=== PATIENT | female | born 2000 | race Two or more races ===

== ENCOUNTER 2024-10-27 20:44 | Emergency (ER) | payer MEDICAID, SELFPAY ==
[2024-10-27 20:45] VITALS: BMI 23.9
[2024-10-27 20:57] VITALS: BP 121/86; PULSE 90; RESP 20; TEMP 36.7; O2SAT 99
--- NOTE | 2024-10-27 21:00 | XR_ITS ---
Examination: Abdomen sonogram, Limited Date and time of exam: October 27, 2024 2102 hours INDICATIONS: Onset epigastric pain today Technique: Real-time rich scale transabdominal sonographic images of the upper abdomen obtained. Findings: Normal gallbladder. Normal common bile duct 0.2 cm Pancreatic head 1.9 cm Liver 16.8 cm no liver lesions Normal hepatopedal portal venous flow Patent IVC IMPRESSION: Normal gallbladder Mild hepatomegaly
--- NOTE | 2024-10-27 21:00 | PD.EDABDPN ---
ED Abdominal Pain RME/HPI General Chief Complaint: Abdominal Pain Stated complaint: ABD PAIN RADIATING TO BACK AFTER EATING Time seen by provider: 10/27/24 20:50 Arrival date/time: 10/27/24 20:44 RME / HPI RME / HPI narrative: 24-year-old female patient with no past medical history, came in for evaluation regarding epigastric pain. Everything started few minutes prior to ER visit as sudden onset of epigastric pain after eating pizza and corn dog. Pain is described as sharp pain radiating to the back. Associated with vomiting. Denies any fever denies any other complaints no medication was taken prior to arrival. Related Data Allergies Allergy/AdvReac Type Severity Reaction Status Date / Time No Known Allergies Allergy Verified 10/27/24 20:45 Review of Systems Review of Systems Narrative Review of Systems: Review of system reviewed and within normal limits except mentioned in HPI ED Exam Narrative Physical exam: VITAL SIGNS: Reviewed. GENERAL APPEARANCE: Alert and interactive, follows commands, no acute distress, HEAD AND FACE: Non-traumatic. ENT: PERRL, pink conjunctivitis, eyelid no trauma, Mucous membrane moist. NECK: Supple, nontender, no nuchal rigidity. CHEST: No tenderness, no crepitus, no paradoxical movement, no retractions. LUNGS: Clear, well ventilated, symmetric, no rales, no wheezing, no ronchi, no stridor, good breath sounds bilaterally. HEART: Regular rate, regular rhythm, no murmur, no gallops. ABDOMEN: Soft, positive bowel sounds, nondistended, no guarding, epigastric tenderness, no rebound, no masses, RECTAL: Deferred. GENITAL: Deferred. NEUROLOGICAL: Gross motor function intact sensory function intact, Appropriate for age. MUSCULOSKELETAL: low back nontender, full range of motion. EXTREMITIES: Nontender, full range of motion. SKIN: Color pink, dry, no rash, no lacerations, no abrasions, no contusions. LYMPHATICS: Deferred. Course Quality Measures none Orders Category Date Time Status US gall bladder Stat Exams 10/27/24 21:00 Completed CBC Stat Lab 10/27/24 21:40 Completed Comprehensive Metabolic Panel Stat Lab 10/27/24 21:40 Completed HCG Qualitative,Urine Stat Lab 10/27/24 21:28 Completed Lipase Stat Lab 10/27/24 21:40 Completed Prothrombin Time with INR Stat Lab 10/27/24 21:40 Completed UA, C/S IF [Urinalysis, C/S if Indicated] Stat Lab 10/27/24 21:28 Completed Ketorolac Inj [Toradol Inj] Med 10/27/24 20:59 Discontinued 30 mg IM X1 ONE Ondansetron Odt [Zofran Odt] Med 10/27/24 20:59 Discontinued 4 mg PO X1 ONE Vital Signs Vital signs: Vital Signs Temperature 98.0 F 10/27/24 20:57 Pulse Rate 90 10/27/24 20:57 Respiratory Rate 20 10/27/24 20:57 Blood Pressure 121/86 H 10/27/24 20:57 Pulse Oximetry (%) 99 10/27/24 20:57 Oxygen Delivery Method Room Air 10/27/24 20:57 Abdominal Pain [facility] Narrative [facility] Narrative:: 24-year-old female patient with no past medical history, came in for evaluation regarding epigastric pain. Everything started few minutes prior to ER visit as sudden onset of epigastric pain after eating pizza and corn dog. Pain is described as sharp pain radiating to the back. Associated with vomiting. Denies any fever denies any other complaints no medication was taken prior to arrival. Patient's workup today all came back unremarkable lipase is normal, ultrasound of gallbladder also came back unremarkable. Prior to discharge patient epigastric pain is completely gone. Patient data External records reviewed:: None Clinical information provided by:: patient Social determinants that could affect healthcare access:: none Patient has the following chronic illnesses:: None How is presenting disease/condition affected by chronic disease/condition?: no chronic disease Evaluation data The following diagnostics were reviewed and interpreted by me:: lab results and radiology exam(s) Lab and/or radiology exams considered but not ordered:: None Interpretation Summary: See results MDM Medications / Prescriptions Medications or Prescriptions considered but not ordered:: None Medication administrations:: Medication Administration History Discontinued Medications Ketorolac Tromethamine (Ketorolac Inj 60 Mg/2 Ml Vial) 30 mg IM X1 ONE Stop: 10/27/24 21:00 Last Admin: 10/27/24 21:32 Dose: 30 mg Documented By: EF Ondansetron HCl (Ondansetron Odt 4 Mg Tabrap) 4 mg PO X1 ONE; Protocol Stop: 10/27/24 21:00 Last Admin: 10/27/24 21:32 Dose: 4 mg Documented By: EF Toradol IM and Zofran Consultations Consultation(s) initiated? (list below): No Diagnosis Differential diagnosis abdominal pain: abdominal pain, gastroenteritis and pancreatitis Most likely diagnosis given after review of the tests above:: With worsening, epigastric pain, Admission Indicated Admission indicated?: not indicated Admission Request Was there a request for admission?: No Admission Attestation Admission request attestation: Stable Disposition Plan Disposition Plan: Discharge Discharge Attestation Discharge Attestation: The patient was given an opportunity to ask questions and understood the discharge instructions. Discharge instructions specifically effects, indications for sooner follow up or return to the emergency department, and the expected course of current diagnosis. Patient condition: Stable Discharge Plan Plan Patient Disposition: HOME (Self Care) Discharge Disposition comment: Stable Problem List Clinical Impression: Acute epigastric pain, Food poisoning Patient/Caregiver Discharge Instructions Discharge Activity: activity as tolerated Education Materials: ED Food Poison Or Gastroenteritis Additional Instructions: Thank you for the opportunity for serving you today. You are stable for discharged . You are advised to: Follow-up with your PCP in 1 to 2 days Return to ED for worsening of symptoms Increase oral fluids Print Language: Citizen Of [place] Stand Alone Forms: Sadia Award Info., Patient Portal Info Letter PA/LAUREN Supervising Physician JARON/LAUREN Supervising Physician: MD Almita
[2024-10-27] MEDS: KETOROLAC INJ 60 MG/2 ML VIAL 30 MG IM (21:32)
[2024-10-27] MEDS: ONDANSETRON ODT 4 MG TABRAP PO (21:32)
[2024-10-27 21:46] LABS: Collection Type, Urine Clean Catch
[2024-10-27 22:01] LABS: Basophils # (Auto) 0.1 Thou/mm3 (0.0-0.2); Basophils % (Auto) 1 % (0-2.5); Eosinophils # (Auto) 0.4 Thou/mm3 (0.0-0.5); Eosinophils % (Auto) 4 % (0-10); Hematocrit 42.1 % (36.0-46.0); Immature Granulocytes % (Auto) 0 % (0-0); Immature Granulocytes Auto 0.01 Thou/mm3 (0.00-0.00); Lymphocytes # (Auto) 3.1 Thou/mm3 (1.0-4.8); Lymphocytes % (Auto) 35 % (10-50); Mean Corpuscular HGB Conc 35.6 g/dl (31.0-37.0); Mean Corpuscular Hemoglobin 29.5 pg (25.0-35.0); Mean Corpuscular Volume 83 fL (80-100); Monocytes # (Auto) 0.4 Thou/mm3 (0.0-0.8); Monocytes % (Auto) 5 % (0-12); Neutrophils % (Auto) 56 % (37-80); Nucleated Red Blood Cell % 0 /100 WBC (0); Platelet Count 201 Thou/mm3 (140-440); RDW Standard Deviation 37.3 fL (36.4-46.3); Red Blood Count 5.09 Miln/mm3 (4.00-5.20); White Blood Count 8.9 Thou/mm3 (3.6-11.0)
[2024-10-27 22:04] LABS: Prothrombin Time 11.4 Seconds (9.0-12.2)
[2024-10-27 22:05] LABS: Alanine Aminotransferase 10 U/L (10-49); Albumin, Serum 4.7 gm/dL (3.5-5.0); Albumin/Globulin Ratio 1.5 (1.2-2.2); Alkaline Phosphatase 63 U/L (46-116); Anion Gap 4 (7-16); Aspartate Amino Transferase 22 U/L (0-34); BUN/Creatinine Ratio 9 Ratio (12-20); Bilirubin,Total 0.4 mg/dL (0.3-1.2); Blood Urea Nitrogen 8 mg/dL (9-23); Calcium 9.5 mg/dL (8.3-10.6); Calcium (Corrected) 9.5 mg/dL (8.5-10.1); Carbon Dioxide 27.1 mMol/L (20.0-31.0); Chloride 105 mMol/L (98-107); Creatinine (Component) 0.9 mg/dL (0.6-1.3); Estimated Creatinine Clearance 88.2 mL/min (>60); Globulin 3.2 gm/dL (2.3-3.5); Glucose 82 mg/dL (74-106); Lipase 50 U/L (12-53); Osmolality,Calculated 269 (275-295); Potassium 3.8 mMol/L (3.4-5.1); Sodium 136 mMol/L (136-145); Total Protein 7.9 gm/dL (5.7-8.2); eGFR > 60 See Note
[2024-10-27 22:12] LABS: Bilirubin,Urine Negative (Negative); Blood,Urine Negative (Negative); Clarity,Urine Clear (Clear/Hazy); Color,Urine Colorless (Lt Yel-Yel); Culture Indicated,Urine Not Indicated; Glucose, Urine Negative (Negative); Ketones,Urine Negative (Negative); Leukocyte Esterase,Urine Negative (Negative); Nitrite,Urine Negative (Negative); Protein,Urine Negative (Neg - Trace); RBC,Urine 2 /hpf (0-3); Specific Gravity,Urine 1.004 (1.001-1.035); Squamous Epithelial Cell,Urine < 1 /hpf (0-5); Urobilinogen,Urine Negative mg/dL (0.0-1.0); WBC,Urine 1 /hpf (0-5)
[2024-10-27 22:13] LABS: HCG Qualitative,Urine Negative
[2024-10-27 22:53] VITALS: BP 117/79; PULSE 75; RESP 17; TEMP 36.5; O2SAT 99
== END 2024-10-27 23:05 | disposition home or self-care (01) ==
LOC: SERX 23:37
PROVIDERS: Nurse Practitioner Family; Emergency Provider Emergency Medicine
DX: A05.9 Bacterial foodborne intoxication, unspecified (principal)
CPT/HCPCS: 36415; 76705; 80053; 81001; 81025; 83690; 85025; 85610; 96372; 99284; J1885; Q0162